=== PATIENT | female | born 1995 ===

== ENCOUNTER 2017-08-27 04:57 | Inpatient (IN) | payer BC ==
[2017-08-27] MEDS ORDERED: Ondansetron 4 MG/2 ML SDV IVPUSH PRN ×2 (08:07→12:59)
[2017-08-27] MEDS ORDERED: Sodium Chloride 0.9% 10 ML Syringe FLUSH PRN (08:07)
[2017-08-27] MEDS ORDERED: Zolpidem 5 MG Tab PO ONE (08:07)
[2017-08-27] MEDS ORDERED: Nalbuphine 20 MG/1 ML Amp IVPUSH PRN (08:07)
[2017-08-27] MEDS ORDERED: Oxytocin/Lactated Ringers 10 UNIT/1,000 ML BAG IV SCH (08:15)
--- NOTE | 2017-08-27 08:18 | PCM.LDHP ---
L&D History of Present Illness - General Date of Service: 08/27/17 Admit Problem/Dx: Patient Status Order with Admit Dx/Problem 08/27/17 08:08 Patient Status [ADT] Routine Admission Diagnosis/Problem Admission Diagnosis/Problem Normal labor Source of Information: Patient History Limitations: Reports: No Limitations - History of Present Illness Introduction:: Patient is a 21 y/o at 40 1/7 wks who presented early this am, around 0500 , with concerns for contractions. States that contractions have been occurring on and off the last few days, but have increased in frequency and intensity in the last night. Now feeling them every 3 minutes or so. otherwise uncomplicated. 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: : 1 Para: 0 LMP (Approximate): - Past Surgical History Musculoskeletal Surgical History: Reports: Other (See Below) (Wrist surgery Toe surgery) Social & Family History - Tobacco Use Smoking Status *Q: Never Smoker - Alcohol Use Alcohol Use History: No - Recreational Drug Use Recreational Drug Use: No H&P Review of Systems - Review of Systems: Review Of Systems: See Below General: Reports: No Symptoms Pulmonary: Reports: No Symptoms Cardiovascular: Reports: No Symptoms Gastrointestinal: Reports: Abdominal Pain Genitourinary: Reports: No Symptoms Musculoskeletal: Reports: No Symptoms Neurological: Reports: No Symptoms L&D Exam - Exam Exam: See Below - OB Specific Contraction Intensity: Moderate Movement: Active Heart Tones: Present Heart Tones per Min: 140 Heart Rate (FHR) Variability: Moderate (6-25 bmp) Presentation: Vertex - Dobbs Score Dobbs Score Cervix Position: Midposition Dobbs Score Consistency: Soft Dobbs Score Effacement: >80% Dobbs Score Dilation: 1-2 cm Dobbs Score Infant's Station: -2 Dobbs Score Total: 8 - Exam General: Alert, Oriented, Cooperative Lungs: Clear to Auscultation, Normal Respiratory Effort Cardiovascular: Regular Rate, Regular Rhythm GI/Abdominal Exam: Soft, Non-Tender Genitourinary: Normal external exam Extremities: Normal Inspection Skin: Warm, Dry, Intact - Problem List (1) 40 weeks gestation of SNOMED Code(s): 17182029 ICD Code: Z3A.40 - 40 WEEKS GESTATION OF Status: Acute Current Visit: Yes (2) Normal labor SNOMED Code(s): 40698279 ICD Code: O80 - ENCOUNTER FOR FULL-TERM UNCOMPLICATED DELIVERY; Z37.9 - OUTCOME OF DELIVERY, UNSPECIFIED Status: Acute Current Visit: Yes Problem List Initiated/Reviewed/Updated: Yes Orders Last 24hrs: Active Orders 24 hr Category Date Time Status Patient Status [ADT] Routine ADT 08/27/17 08:08 Ordered Activity as Tolerated [RC] PFP Care 08/27/17 08:07 Ordered Communication Order [RC] ASDIRECTED Care 08/27/17 08:07 Ordered Heart Tones [RC] ASDIRECTED Care 08/27/17 08:08 Ordered Notify Provider [RC] PFP Care 08/27/17 08:07 Ordered Notify Provider [RC] PRN Care 08/27/17 08:07 Ordered Peripheral IV Care [RC] . DIRECTED Care 08/27/17 08:08 Ordered Vital Signs [RC] PER UNIT ROUTINE Care 08/27/17 08:07 Ordered Regular Diet [DIET] Diet 08/27/17 Breakfast Ordered CBC W/O DIFF,HEMOGRAM [HEME] Routine Lab 08/27/17 08:07 Ordered TYPE AND SCREEN [BBK] Routine Lab 08/27/17 08:07 Ordered Lactated Ringers [Ringers, Lactated] 1,000 ml Med 08/27/17 08:15 Ordered IV ASDIRECTED Nalbuphine [Nubain] Med 08/27/17 08:07 Ordered 10 mg IVPUSH Q2H PRN Ondansetron [Zofran] Med 08/27/17 08:07 Ordered 4 mg IVPUSH Q4H PRN Oxytocin/Lactated Ringers [Pitocin in LR 10 Units/1,000 Med 08/27/17 08:15 Ordered ML] 10 unit in 1,000 ml IV .CONTINUOUS Sodium Chloride 0.9% [Saline Flush] Med 08/27/17 08:07 Ordered 10 ml FLUSH ASDIRECTED PRN Zolpidem [Ambien] Med 08/27/17 08:07 Once 5 mg PO ONETIME ONE Electronic Heart Tones Ext w TOCO [WOMSER] Oth 08/27/17 08:07 Ordered Routine Electronic Heart Tones Internal [WOMSER] Per Unit Oth 08/27/17 08:07 Ordered Routine Peripheral IV Insertion Adult [OM.PC] Routine Oth 08/27/17 08:07 Ordered Resuscitation Status Routine Resus Stat 08/27/17 08:07 Ordered Assessment/Plan Comment:: 21 y/o at 40 1/7 wks gestation presented with concerns of labor. Initial assessment by nursing showed patient to be 1 cm dilated, 70% effaced, and -2 station. My exam now, ~3 hrs later, shows patient to be 2 cm, 90%, and -2 station. First 45 minutes of tracing shows frequent small, sharp variable decelerations, but is otherwise reassuring. While patient has not made a lot of change do think she is in early labor. Given her living 1.5 hours from hospital, initial tracing appearance, and cervical change recommend she be admitted. She agrees. Will place a lock bulb, but would like to defer other augmentation for now. She agrees. CBC and T&S. GBS negative, no need for antibiotics. Pain management per patient preference. Anticipate . Luz Stratton MD
--- NOTE | 2017-08-27 12:23 | PCM.PNLD ---
Labor Progress Note - VS & Meds Vital Signs: Last Vital Signs Temp 37.1 C 08/27/17 10:00 Pulse 97 08/27/17 10:00 Resp 28 H 08/27/17 10:00 BP 135/90 08/27/17 10:00 Pulse Ox 96 08/27/17 10:00 Active Medications: Current Medications Lactated Ringer's (Ringers, Lactated) 1,000 mls @ 40 mls/hr IV ASDIRECTED SANDI Oxytocin/Lactated Ringer's (Pitocin In Lr 10 Units/1,000 Ml) 10 unit in 1,000 mls @ 500 mls/hr IV .CONTINUOUS SANDI Nalbuphine HCl (Nubain) 10 mg IVPUSH Q2H PRN PRN Reason: Pain (moderate 4-6) Last Admin: 08/27/17 12:07 Dose: 10 mg Ondansetron HCl (Zofran) 4 mg IVPUSH Q4H PRN PRN Reason: Nausea/Vomiting Sodium Chloride (Saline Flush) 10 ml FLUSH ASDIRECTED PRN PRN Reason: Keep Vein Open Discontinued Medications Zolpidem Tartrate (Ambien) 5 mg PO ONETIME ONE Stop: 08/27/17 08:08 Last Admin: 08/27/17 08:34 Dose: 5 mg - Uterine Contractions Uterine Monitoring Mode: External [place] Contraction Intensity: Moderate to Strong - Monitoring Monitor Mode: External Ultrasound Heart Rate (FHR) Baseline: 140 Heart Rate (FHR) Variability: Moderate (6-25 bmp) Accelerations: Present, 15x15 Decelerations: Variable Strip Review: Category II - Vaginal Exam Dilation (cm): 5 Effacement (Percent): 90 Station: -2 Cervical Position: Midposition - Labor Progress (Free Text) Labor Progress: Coelho bulb out earlier. Doing well. Good cervical change. Patient just received dose of nubain. Will return and assess patient again later this PM. Defer AROM for now given making good change on her own.
[2017-08-27] MEDS: Lactated Ringers 1,000 ML IV SCH ×3 (12:55→14:39)
[2017-08-27] MEDS ORDERED: fentaNYL 100 MCG/2 ML SDV EPIDUR PRN (12:59)
[2017-08-27] MEDS ORDERED: diphenhydrAMINE 50 MG/ML SDV IVPUSH PRN (12:59)
[2017-08-27] MEDS: Bupivacaine/fentaNYL/NS 100 ML Bag EPIDUR SCH ×2 (13:38→20:03)
--- NOTE | 2017-08-27 13:47 | PCM.PREANE ---
Preanesthetic Assessment - Procedure Proposed Procedure: JOSEPHINE - Anesthesia/Transfusion/Family Hx Anesthesia History: Prior Anesthesia Without Reaction Family History of Anesthesia Reaction: No Transfusion History: No Prior Transfusion(s) - Review of Systems General: No Symptoms Pulmonary: No Symptoms Cardiovascular: No Symptoms Gastrointestinal: Other (GERD) Neurological: No Symptoms Other: Reports: None - Physical Assessment NPO Status Date: 08/27/17 NPO Status Time: 11:00 O2 Sat by Pulse Oximetry: 96 Respiratory Rate: 28 Vital Signs: Last Vital Signs Temp 37.1 C 08/27/17 10:00 Pulse 97 08/27/17 10:00 Resp 28 H 08/27/17 10:00 BP 135/90 08/27/17 10:00 Pulse Ox 96 08/27/17 10:00 Height: 1.7 m Weight: 109.679 kg ASA Class: 2 Mental Status: Alert & Oriented x3 Airway Class: Mallampati = 2 Dentition: Reports: Normal Dentition Thyro-Mental Finger Breadths: 3 Mouth Opening Finger Breadths: 3 ROM/Head Extension: Full Lungs: Clear to Auscultation, Normal Respiratory Effort Cardiovascular: Regular Rate, Regular Rhythm - Lab Values: Laboratory Last Values WBC 16.35 K/mm3 (3.98-10.04) H 08/27/17 08:24 RBC 4.36 M/mm3 (3.98-5.22) 08/27/17 08:24 Hgb 12.6 gm/L (11.2-15.7) 08/27/17 08:24 Hct 39.0 % (34.1-44.9) 08/27/17 08:24 MCV 89.4 fl (79.4-94.8) 08/27/17 08:24 MCH 28.9 pg (25.6-32.2) 08/27/17 08:24 MCHC 32.3 g/dl (32.2-35.5) 08/27/17 08:24 RDW Std Deviation 44.9 fL (36.4-46.3) 08/27/17 08:24 Plt Count 265 K/mm3 (182-369) 08/27/17 08:24 MPV 10.8 fl (9.4-12.3) 08/27/17 08:24 Blood Type A POSITIVE 08/27/17 08:24 Gel Antibody Screen Negative 08/27/17 08:24 - Allergies Allergies/Adverse Reactions: Allergies Allergy/AdvReac Type Severity Reaction Status Date / Time No Known Allergies Allergy Verified 08/27/17 08:48 - Blood Blood Available: No Product(s) Available: None - Anesthesia Plan Pre-Op Medication Ordered: None - Acknowledgements Anesthesia Type Planned: Epidural Pt an Appropriate Candidate for the Planned Anesthesia: Yes Alternatives and Risks of Anesthesia Discussed w Pt/Guardian: Yes Pt/Guardian Understands and Agrees with Anesthesia Plan: Yes PreAnesthesia Questionnaire Gastrointestinal History: Reports: Other (See Below) Other Gastrointestinal History: Heart burn with 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 History: Reports: Musculoskeletal History: Reports: None - Past Surgical History GI Surgical History: Reports: None Musculoskeletal Surgical History: Reports: Other (See Below) Other Musculoskeletal Surgeries/Procedures:: Right wrist open reduction, internal fixation-2012, Right toe-muscle repair-2004 - SUBSTANCE USE Smoking Status *Q: Never Smoker Tobacco Use Within Last Twelve Months: No Second Hand Smoke Exposure: No Recreational Drug Use History: No - HOME MEDS Home Medications: Home Meds Vit W-Ca,Fe,FA(<1 mg) [ Vitamins] 1 each PO DAILY 08/27/17 [ History] - CURRENT (IN HOUSE) MEDS Current Meds: Current Medications Diphenhydramine HCl (Benadryl) 25 mg IVPUSH Q6H PRN PRN Reason: Pruritis Fentanyl (Sublimaze) 100 mcg EPIDUR Q3H PRN PRN Reason: Pain Last Admin: 08/27/17 13:38 Dose: 100 mcg Fentanyl/Bupivacaine HCl (Fentanyl/Bupivacaine/Ns 2 Mcg-0.125% 100 Ml) 100 ml EPIDUR ASDIRECTED SANDI Last Admin: 08/27/17 13:38 Dose: 100 ml Lactated Ringer's (Ringers, Lactated) 1,000 mls @ 40 mls/hr IV ASDIRECTED SNADI Last Admin: 08/27/17 13:39 Dose: 999 mls/hr Oxytocin/Lactated Ringer's (Pitocin In Lr 10 Units/1,000 Ml) 10 unit in 1,000 mls @ 500 mls/hr IV .CONTINUOUS SANDI Nalbuphine HCl (Nubain) 10 mg IVPUSH Q2H PRN PRN Reason: Pain (moderate 4-6) Last Admin: 08/27/17 12:07 Dose: 10 mg Ondansetron HCl (Zofran) 4 mg IVPUSH Q4H PRN PRN Reason: Nausea/Vomiting Ondansetron HCl (Zofran) 4 mg IVPUSH ONETIME PRN PRN Reason: Nausea/Vomiting Sodium Chloride (Saline Flush) 10 ml FLUSH ASDIRECTED PRN PRN Reason: Keep Vein Open Discontinued Medications Zolpidem Tartrate (Ambien) 5 mg PO ONETIME ONE Stop: 08/27/17 08:08 Last Admin: 08/27/17 08:34 Dose: 5 mg
--- NOTE | 2017-08-27 16:11 | PCM.PNLD ---
Labor Progress Note - VS & Meds Vital Signs: Last Vital Signs Temp 37.1 C 08/27/17 10:00 Pulse 97 08/27/17 10:00 Resp 28 H 08/27/17 13:47 BP 135/90 08/27/17 10:00 Pulse Ox 96 08/27/17 13:47 Active Medications: Current Medications Diphenhydramine HCl (Benadryl) 25 mg IVPUSH Q6H PRN PRN Reason: Pruritis Fentanyl (Sublimaze) 100 mcg EPIDUR Q3H PRN PRN Reason: Pain Last Admin: 08/27/17 13:38 Dose: 100 mcg Fentanyl/Bupivacaine HCl (Fentanyl/Bupivacaine/Ns 2 Mcg-0.125% 100 Ml) 100 ml EPIDUR ASDIRECTED SANDI Last Admin: 08/27/17 13:38 Dose: 100 ml Lactated Ringer's (Ringers, Lactated) 1,000 mls @ 40 mls/hr IV ASDIRECTED SANDI Last Infusion: 08/27/17 14:42 Dose: 125 mls/hr Oxytocin/Lactated Ringer's (Pitocin In Lr 10 Units/1,000 Ml) 10 unit in 1,000 mls @ 500 mls/hr IV .CONTINUOUS SANDI Nalbuphine HCl (Nubain) 10 mg IVPUSH Q2H PRN PRN Reason: Pain (moderate 4-6) Last Admin: 08/27/17 12:07 Dose: 10 mg Ondansetron HCl (Zofran) 4 mg IVPUSH Q4H PRN PRN Reason: Nausea/Vomiting Ondansetron HCl (Zofran) 4 mg IVPUSH ONETIME PRN PRN Reason: Nausea/Vomiting Sodium Chloride (Saline Flush) 10 ml FLUSH ASDIRECTED PRN PRN Reason: Keep Vein Open Discontinued Medications Zolpidem Tartrate (Ambien) 5 mg PO ONETIME ONE Stop: 08/27/17 08:08 Last Admin: 08/27/17 08:34 Dose: 5 mg - Uterine Contractions Uterine Monitoring Mode: External [place] Contraction Intensity: Moderate to Strong - Monitoring Monitor Mode: External Ultrasound Heart Rate (FHR) Baseline: 145 Heart Rate (FHR) Variability: Moderate (6-25 bmp) Accelerations: Present, 15x15 Decelerations: Variable (Multiple small, narrow variables noted ) Strip Review: Category II - Vaginal Exam Dilation (cm): 6-7 Effacement (Percent): 90 Station: -2 Cervical Position: Midposition - Labor Progress (Free Text) Labor Progress: Patient doing well. Comfortable with epidural. AROM performed with release of small amount of blood tinged fluid. Continue present management otherwise.
--- NOTE | 2017-08-27 18:07 | PCM.PNLD ---
Labor Progress Note - VS & Meds Vital Signs: Last Vital Signs Temp 37.1 C 08/27/17 10:00 Pulse 97 08/27/17 10:00 Resp 28 H 08/27/17 13:47 BP 135/90 08/27/17 10:00 Pulse Ox 96 08/27/17 13:47 Active Medications: Current Medications Diphenhydramine HCl (Benadryl) 25 mg IVPUSH Q6H PRN PRN Reason: Pruritis Fentanyl (Sublimaze) 100 mcg EPIDUR Q3H PRN PRN Reason: Pain Last Admin: 08/27/17 13:38 Dose: 100 mcg Fentanyl/Bupivacaine HCl (Fentanyl/Bupivacaine/Ns 2 Mcg-0.125% 100 Ml) 100 ml EPIDUR ASDIRECTED SANDI Last Admin: 08/27/17 13:38 Dose: 100 ml Lactated Ringer's (Ringers, Lactated) 1,000 mls @ 40 mls/hr IV ASDIRECTED SANDI Last Infusion: 08/27/17 14:42 Dose: 125 mls/hr Oxytocin/Lactated Ringer's (Pitocin In Lr 10 Units/1,000 Ml) 10 unit in 1,000 mls @ 500 mls/hr IV .CONTINUOUS SANDI Nalbuphine HCl (Nubain) 10 mg IVPUSH Q2H PRN PRN Reason: Pain (moderate 4-6) Last Admin: 08/27/17 12:07 Dose: 10 mg Ondansetron HCl (Zofran) 4 mg IVPUSH Q4H PRN PRN Reason: Nausea/Vomiting Ondansetron HCl (Zofran) 4 mg IVPUSH ONETIME PRN PRN Reason: Nausea/Vomiting Sodium Chloride (Saline Flush) 10 ml FLUSH ASDIRECTED PRN PRN Reason: Keep Vein Open Discontinued Medications Zolpidem Tartrate (Ambien) 5 mg PO ONETIME ONE Stop: 08/27/17 08:08 Last Admin: 08/27/17 08:34 Dose: 5 mg - Uterine Contractions Uterine Monitoring Mode: External [place] Contraction Intensity: Moderate to Strong - Monitoring Monitor Mode: External Ultrasound Heart Rate (FHR) Baseline: 145 Heart Rate (FHR) Variability: Moderate (6-25 bmp) Accelerations: Present, 15x15 Decelerations: Early, Variable Strip Review: Category II - Vaginal Exam Dilation (cm): 8-9 Effacement (Percent): 90 Station: -1 Cervical Position: Midposition - Labor Progress (Free Text) Labor Progress: Called by nursing, exam for them just a rim/lip on one side. Arrived and patient more like 8-9 cm dilated, however, good change from 2 hours ago when was 6-7. Continue present management. Luz Stratton MD
--- NOTE | 2017-08-27 20:44 | PCM.DEL ---
L & D Note - General Info Date of Service: 08/27/17 - Delivery Note Labor: Spontaneous Cervical Ripening Method: Balloon Device Delivery Outcome: Livebirth Infant Delivery Method: Spontaneous Vaginal Delivery-Single Delivery Mode: Spontaneous Presentation: Left Occiput Anterior (REILLY) Nuchal Cord: Present (tight, not able to be reduced) Anesthesia Type: Epidural Amniotic Fluid Description: Meconium Stained Episiotomy Type: None Laceration: 2nd Degree, Perineal Suture type: Vicryl Suture size: 2-0 Placenta: Intact, Spontaneous Cord: 3 Vessels Estimated Blood Loss: 300 Resuscitation Needed: Yes : Bulb Syringe, Stimulated, Warmed, [place] Used, Warmer Used Score 1 min: 8 Score 5 min: 9 Delivery Comments (Free Text/Narrative):: Patient found to be complete and began pushing. With maternal pushing effort head delivered from an PAUL presentation. Nuchal cord present, but tight and so delivered through. With gentle downward traction the shoulders and body delivered. Infant placed on maternal abdomen where cord clamped and cut. Baby then taken to warmer for assessment. Cord blood obtained. Placenta allowed time to separate and spontaneously expelled. Inspection of the perineum showed a 2nd degree laceration which was repaired with a 2-0 vicryl in the typical fashion. - Patient Data Vitals - Most Recent: Last Vital Signs Temp 37.1 C 08/27/17 10:00 Pulse 97 08/27/17 10:00 Resp 28 H 08/27/17 13:47 BP 135/90 08/27/17 10:00 Pulse Ox 96 08/27/17 13:47 Weight - Most Recent: 109.679 kg Lab Results Last 24 Hours: Laboratory Results - last 24 hr 08/27/17 08/27/17 Range/Units 08:24 08:24 WBC 16.35 H (3.98-10.04) K/mm3 RBC 4.36 (3.98-5.22) M/mm3 Hgb 12.6 (11.2-15.7) gm/L Hct 39.0 (34.1-44.9) % MCV 89.4 (79.4-94.8) fl MCH 28.9 (25.6-32.2) pg MCHC 32.3 (32.2-35.5) g/dl RDW Std Deviation 44.9 (36.4-46.3) fL Plt Count 265 (182-369) K/mm3 MPV 10.8 (9.4-12.3) fl Blood Type A POSITIVE Gel Antibody Screen Negative Med Orders - Current: Current Medications Diphenhydramine HCl (Benadryl) 25 mg IVPUSH Q6H PRN PRN Reason: Pruritis Fentanyl (Sublimaze) 100 mcg EPIDUR Q3H PRN PRN Reason: Pain Last Admin: 08/27/17 13:38 Dose: 100 mcg Fentanyl/Bupivacaine HCl (Fentanyl/Bupivacaine/Ns 2 Mcg-0.125% 100 Ml) 100 ml EPIDUR ASDIRECTED SANDI Last Admin: 08/27/17 20:03 Dose: 100 ml Lactated Ringer's (Ringers, Lactated) 1,000 mls @ 40 mls/hr IV ASDIRECTED SANDI Last Infusion: 08/27/17 14:42 Dose: 125 mls/hr Oxytocin/Lactated Ringer's (Pitocin In Lr 10 Units/1,000 Ml) 10 unit in 1,000 mls @ 500 mls/hr IV .CONTINUOUS SANDI Nalbuphine HCl (Nubain) 10 mg IVPUSH Q2H PRN PRN Reason: Pain (moderate 4-6) Last Admin: 08/27/17 12:07 Dose: 10 mg Ondansetron HCl (Zofran) 4 mg IVPUSH Q4H PRN PRN Reason: Nausea/Vomiting Ondansetron HCl (Zofran) 4 mg IVPUSH ONETIME PRN PRN Reason: Nausea/Vomiting Sodium Chloride (Saline Flush) 10 ml FLUSH ASDIRECTED PRN PRN Reason: Keep Vein Open Discontinued Medications Zolpidem Tartrate (Ambien) 5 mg PO ONETIME ONE Stop: 08/27/17 08:08 Last Admin: 08/27/17 08:34 Dose: 5 mg - Problem List & Annotations (1) 40 weeks gestation of SNOMED Code(s): 83823524 Code(s): Z3A.40 - 40 WEEKS GESTATION OF Status: Acute Current Visit: Yes (2) Normal labor SNOMED Code(s): 11991022 Code(s): O80 - ENCOUNTER FOR FULL-TERM UNCOMPLICATED DELIVERY; Z37.9 - OUTCOME OF DELIVERY, UNSPECIFIED Status: Acute Current Visit: Yes (3) Vaginal delivery SNOMED Code(s): 818982710 Code(s): O80 - ENCOUNTER FOR FULL-TERM UNCOMPLICATED DELIVERY Status: Acute Current Visit: Yes - Problem List Review Problem List Initiated/Reviewed/Updated: Yes - My Orders Last 24 Hours: My Active Orders 08/27/17 08:07 Activity as Tolerated [RC] PFP Communication Order [RC] ASDIRECTED Notify Provider [RC] PFP Notify Provider [RC] PRN Vital Signs [RC] PER UNIT ROUTINE Nalbuphine [Nubain] 10 mg IVPUSH Q2H PRN Ondansetron [Zofran] 4 mg IVPUSH Q4H PRN Sodium Chloride 0.9% [Saline Flush] 10 ml FLUSH ASDIRECTED PRN Electronic Heart Tones Ext w TOCO [WOMSER] Routine Electronic Heart Tones Internal [WOMSER] Per Unit Routine Peripheral IV Insertion Adult [OM.PC] Routine Resuscitation Status Routine 08/27/17 08:08 Patient Status [ADT] Routine Heart Tones [RC] ASDIRECTED Peripheral IV Care [RC] . DIRECTED 08/27/17 08:15 Lactated Ringers [Ringers, Lactated] 1,000 ml IV ASDIRECTED Oxytocin/Lactated Ringers [Pitocin in LR 10 Units/1,000 ML] 10 unit in 1,000 ml IV .CONTINUOUS 08/27/17 Breakfast Regular Diet [DIET] - Assessment Assessment:: 21 y/o G1 now P1001 PPD#0 from at 40 1/7 wks - Plan Plan:: * Routine cares * Encourage breast feeding * Discharge home in 2 days Luz Stratton MD
[2017-08-27] MEDS ORDERED: Bupivacaine 0.25% 10 ML SDV ONE (22:22)
--- NOTE | 2017-08-28 06:41 | PCM48HPAN ---
Post Anesthesia Note - EVALUATION WITHIN 48HRS OF ANESTHETIC Vital Signs in Normal Range: Yes Patient Participated in Evaluation: Yes Respiratory Function Stable: Yes Airway Patent: Yes Cardiovascular Function Stable: Yes Hydration Status Stable: Yes Pain Control Satisfactory: Yes Nausea and Vomiting Control Satisfactory: Yes Mental Status Recovered: Yes - COMMENTS/OBSERVATIONS Free Text/Narrative:: Patient denies any headaches, residual numbness or tingling to LE, and has a very mild case of back soreness. Pt doing well resting in bed.
--- NOTE | 2017-08-28 06:42 | PCM.PNPP ---
- General Info Date of Service: 08/28/17 Functional Status: Reports: Pain Controlled, Tolerating Diet, Ambulating, Urinating - Review of Systems General: Reports: No Symptoms Pulmonary: Reports: No Symptoms Cardiovascular: Reports: No Symptoms Gastrointestinal: Reports: No Symptoms Genitourinary: Reports: No Symptoms Musculoskeletal: Reports: No Symptoms - Patient Data Vital Signs - Most Recent: Last Vital Signs Temp 36.8 C 08/28/17 04:11 Pulse 93 08/28/17 04:11 Resp 13 08/28/17 04:11 BP 102/54 L 08/28/17 04:11 Pulse Ox 95 08/28/17 04:11 Weight - Most Recent: 109.679 kg I&O - Last 24 Hours: Intake & Output 08/27/17 08/27/17 08/28/17 14:59 22:59 06:59 Intake Total 3600 Balance 3600 Lab Results - Last 24 Hours: Laboratory Results - last 24 hr 08/27/17 08/27/17 Range/Units 08:24 08:24 WBC 16.35 H (3.98-10.04) K/mm3 RBC 4.36 (3.98-5.22) M/mm3 Hgb 12.6 (11.2-15.7) gm/L Hct 39.0 (34.1-44.9) % MCV 89.4 (79.4-94.8) fl MCH 28.9 (25.6-32.2) pg MCHC 32.3 (32.2-35.5) g/dl RDW Std Deviation 44.9 (36.4-46.3) fL Plt Count 265 (182-369) K/mm3 MPV 10.8 (9.4-12.3) fl Blood Type A POSITIVE Gel Antibody Screen Negative Med Orders - Current: Current Medications Diphenhydramine HCl (Benadryl) 25 mg IVPUSH Q6H PRN PRN Reason: Pruritis Fentanyl (Sublimaze) 100 mcg EPIDUR Q3H PRN PRN Reason: Pain Last Admin: 08/27/17 13:38 Dose: 100 mcg Fentanyl/Bupivacaine HCl (Fentanyl/Bupivacaine/Ns 2 Mcg-0.125% 100 Ml) 100 ml EPIDUR ASDIRECTED SANDI Last Admin: 08/27/17 20:03 Dose: 100 ml Lactated Ringer's (Ringers, Lactated) 1,000 mls @ 40 mls/hr IV ASDIRECTED SANDI Last Infusion: 08/27/17 14:42 Dose: 125 mls/hr Oxytocin/Lactated Ringer's (Pitocin In Lr 10 Units/1,000 Ml) 10 unit in 1,000 mls @ 500 mls/hr IV .CONTINUOUS SANDI Last Admin: 08/27/17 20:25 Dose: 500 mls/hr Nalbuphine HCl (Nubain) 10 mg IVPUSH Q2H PRN PRN Reason: Pain (moderate 4-6) Last Admin: 08/27/17 12:07 Dose: 10 mg Ondansetron HCl (Zofran) 4 mg IVPUSH Q4H PRN PRN Reason: Nausea/Vomiting Ondansetron HCl (Zofran) 4 mg IVPUSH ONETIME PRN PRN Reason: Nausea/Vomiting Sodium Chloride (Saline Flush) 10 ml FLUSH ASDIRECTED PRN PRN Reason: Keep Vein Open Discontinued Medications Zolpidem Tartrate (Ambien) 5 mg PO ONETIME ONE Stop: 08/27/17 08:08 Last Admin: 08/27/17 08:34 Dose: 5 mg - Infant Interaction Infant Disposition, : [place] in Room with Family Infant Interaction: Holding Infant Feeding: Breastfed ; Nursed Well Support Person: - Recovery Exam Fundal Tone: Firm Fundal Level: 1 Fingerbreadths Below Umbilicus Fundal Placement: Midline Lochia Amount: Scant Lochia Color: Rubra/Red Perineum Description: Edematous Episiotomy/Laceration: Approximated Bladder Status: Voiding Urinary Elimination: Voided - Exam General: Alert, Oriented, Cooperative GI/Abdominal Exam: Soft, Non-Tender Skin: Warm, Dry, Intact - Problem List & Annotations (1) 40 weeks gestation of SNOMED Code(s): 75916316 Code(s): Z3A.40 - 40 WEEKS GESTATION OF Status: Acute Current Visit: Yes (2) Normal labor SNOMED Code(s): 75633031 Code(s): O80 - ENCOUNTER FOR FULL-TERM UNCOMPLICATED DELIVERY; Z37.9 - OUTCOME OF DELIVERY, UNSPECIFIED Status: Acute Current Visit: Yes (3) Vaginal delivery SNOMED Code(s): 505037626 Code(s): O80 - ENCOUNTER FOR FULL-TERM UNCOMPLICATED DELIVERY Status: Acute Current Visit: Yes - Problem List Review Problem List Initiated/Reviewed/Updated: Yes - My Orders Last 24 Hours: My Active Orders 08/27/17 08:07 Activity as Tolerated [RC] PFP Vital Signs [RC] ,, Nalbuphine [Nubain] 10 mg IVPUSH Q2H PRN Ondansetron [Zofran] 4 mg IVPUSH Q4H PRN Sodium Chloride 0.9% [Saline Flush] 10 ml FLUSH ASDIRECTED PRN Electronic Heart Tones Ext w TOCO [WOMSER] Routine Electronic Heart Tones Internal [WOMSER] Per Unit Routine Peripheral IV Insertion Adult [OM.PC] Routine Resuscitation Status Routine 08/27/17 08:08 Patient Status [ADT] Routine 08/27/17 08:15 Lactated Ringers [Ringers, Lactated] 1,000 ml IV ASDIRECTED Oxytocin/Lactated Ringers [Pitocin in LR 10 Units/1,000 ML] 10 unit in 1,000 ml IV .CONTINUOUS 08/27/17 Breakfast Regular Diet [DIET] 08/28/17 03:15 [place] Catheter Insertion [Insert Urinary Catheter] [OM.PC] Q24H 08/28/17 06:21 Patient Status Manage Transfer [TRANSFER] Routine - Assessment Assessment:: 21 y/o G1 now P1001 PPD#1 from at 40 1/7 wks - Plan Plan:: * Routine cares * Encourage breast feeding * Discharge home tomorrow Luz Stratton MD
[2017-08-28] MEDS ORDERED: Benzocaine/Menthol 20%-0.5% Spray 56 GM Canister TOP PRN (06:52)
[2017-08-28] MEDS ORDERED: Docusate Sodium 100 MG Cap PO PRN (06:52)
[2017-08-28] MEDS ORDERED: Witch Hazel Medicated Pads 100/Jar TOP PRN (06:52)
[2017-08-28] MEDS ORDERED: Ibuprofen 600 MG Tab PO PRN (06:52)
[2017-08-28] MEDS ORDERED: Acetaminophen 325 MG Tab PO PRN (06:52)
[2017-08-28] MEDS ORDERED: Lanolin 100% Cream 7 GM Tube TOP PRN (06:52)
--- NOTE | 2017-08-29 05:10 | PCM.PNPP ---
- General Info Date of Service: 08/29/17 Functional Status: Reports: Pain Controlled, Tolerating Diet, Ambulating, Urinating - Review of Systems General: Reports: No Symptoms Pulmonary: Reports: No Symptoms Cardiovascular: Reports: No Symptoms Gastrointestinal: Reports: No Symptoms Genitourinary: Reports: No Symptoms Musculoskeletal: Reports: No Symptoms - Patient Data Vital Signs - Most Recent: Last Vital Signs Temp 36.6 C 08/29/17 04:58 Pulse 73 08/29/17 04:58 Resp 16 08/29/17 04:58 BP 111/76 08/29/17 04:58 Pulse Ox 100 08/29/17 04:58 Weight - Most Recent: 109.679 kg Med Orders - Current: Current Medications Acetaminophen (Tylenol) 650 mg PO Q4H PRN PRN Reason: mild pain or fever Benzocaine/Menthol (Dermoplast Pain Relief [place]) 0 gm TOP ASDIRECTED PRN PRN Reason: Perineal Comfort Measure Docusate Sodium (Colace) 100 mg PO BID PRN PRN Reason: Constipation Emollient Ointment (Lansinoh Hpa) 0 gm TOP ASDIRECTED PRN PRN Reason: Sore Nipples Ibuprofen (Motrin) 600 mg PO Q6H PRN PRN Reason: Mild pain or fever Last Admin: 08/28/17 22:39 Dose: 600 mg Witch Ricarda (Tucks) 1 pad TOP ASDIRECTED PRN PRN Reason: Hemorrhoid pain Discontinued Medications Bupivacaine HCl (Sensorcaine-Mpf 0.25%) 10 ml .ROUTE .STK-MED ONE Stop: 08/27/17 22:23 Diphenhydramine HCl (Benadryl) 25 mg IVPUSH Q6H PRN PRN Reason: Pruritis Fentanyl (Sublimaze) 100 mcg EPIDUR Q3H PRN PRN Reason: Pain Last Admin: 08/27/17 13:38 Dose: 100 mcg Fentanyl/Bupivacaine HCl (Fentanyl/Bupivacaine/Ns 2 Mcg-0.125% 100 Ml) 100 ml EPIDUR ASDIRECTED [facility]I Last Admin: 08/27/17 20:03 Dose: 100 ml Lactated Ringer's (Ringers, Lactated) 1,000 mls @ 40 mls/hr IV ASDIRECTED [facility]ANDI Last Infusion: 08/27/17 14:42 Dose: 125 mls/hr Oxytocin/Lactated Ringer's (Pitocin In Lr 10 Units/1,000 Ml) 10 unit in 1,000 mls @ 500 mls/hr IV .CONTINUOUS SANDI Last Admin: 08/27/17 20:25 Dose: 500 mls/hr Nalbuphine HCl (Nubain) 10 mg IVPUSH Q2H PRN PRN Reason: Pain (moderate 4-6) Last Admin: 08/27/17 12:07 Dose: 10 mg Ondansetron HCl (Zofran) 4 mg IVPUSH Q4H PRN PRN Reason: Nausea/Vomiting Ondansetron HCl (Zofran) 4 mg IVPUSH ONETIME PRN PRN Reason: Nausea/Vomiting Sodium Chloride (Saline Flush) 10 ml FLUSH ASDIRECTED PRN PRN Reason: Keep Vein Open Zolpidem Tartrate (Ambien) 5 mg PO ONETIME ONE Stop: 08/27/17 08:08 Last Admin: 08/27/17 08:34 Dose: 5 mg - Interaction Disposition, : [place] in Room with Family Infant Interaction: Holding Feeding: Breastfed Infant; Nursed Well Support Person: - Recovery Exam Fundal Tone: Firm Fundal Level: At Umbilicus Fundal Placement: Midline Lochia Amount: Small Lochia Color: Rubra/Red Perineum Description: Intact, Minimal Bruising/Swelling Episiotomy/Laceration: Approximated Bladder Status: Voiding Urinary Elimination: Voided - Exam General: Alert, Oriented, Cooperative GI/Abdominal Exam: Soft, Non-Tender Extremities: Normal Inspection Skin: Warm, Dry, Intact - Problem List & Annotations (1) 40 weeks gestation of SNOMED Code(s): 26373634 Code(s): Z3A.40 - 40 WEEKS GESTATION OF Status: Acute Current Visit: Yes (2) Normal labor SNOMED Code(s): 86095448 Code(s): O80 - ENCOUNTER FOR FULL-TERM UNCOMPLICATED DELIVERY; Z37.9 - OUTCOME OF DELIVERY, UNSPECIFIED Status: Acute Current Visit: Yes (3) Vaginal delivery SNOMED Code(s): 160191085 Code(s): O80 - ENCOUNTER FOR FULL-TERM UNCOMPLICATED DELIVERY Status: Acute Current Visit: Yes - Problem List Review Problem List Initiated/Reviewed/Updated: Yes - My Orders Last 24 Hours: My Active Orders 08/28/17 06:52 Activity as Tolerated [RC] PER UNIT ROUTINE Acetaminophen [Tylenol] 650 mg PO Q4H PRN Benzocaine/Menthol [Dermoplast Pain Relief [place]] See Dose Instructions TOP ASDIRECTED PRN Docusate Sodium [Colace] 100 mg PO BID PRN Ibuprofen [Motrin] 600 mg PO Q6H PRN Lanolin [Lansinoh HPA] See Dose Instructions TOP ASDIRECTED PRN Witch Ricarda [Tucks] 1 pad TOP ASDIRECTED PRN Assess Lochia [WOMSER] Per Unit Routine Assess Uterine Involution [WOMSER] Per Unit Routine Breast Pump [WOMSER] Per Unit Routine Heat Therapy [OM.PC] PRN Ice Therapy [OM.PC] Per Unit Routine Perineal Care [OM.PC] Per Unit Routine Peripheral IV Discontinue [OM.PC] Routine Sitz Bath [OM.PC] Per Unit Routine 08/28/17 Breakfast Regular Diet [DIET] 08/29/17 06:52 Heat Therapy [OM.PC] PRN - Assessment Assessment:: 21 y/o G1 now P1001 PPD#2 from at 40 1/7 wks - Plan Plan:: * Routine cares * Encourage breast feeding * Discharge home today Luz Stratton MD
--- NOTE | 2017-08-29 05:11 | PCM.DCSUM1 ---
Discharge Summary - Discharge Data Discharge Date: 08/29/17 Discharge Disposition: Home, Self-Care 01 Condition: Good - Discharge Diagnosis/Problem(s) (1) 40 weeks gestation of SNOMED Code(s): 89593624 ICD Code: Z3A.40 - 40 WEEKS GESTATION OF Status: Acute Current Visit: Yes (2) Normal labor SNOMED Code(s): 53177440 ICD Code: O80 - ENCOUNTER FOR FULL-TERM UNCOMPLICATED DELIVERY; Z37.9 - OUTCOME OF DELIVERY, UNSPECIFIED Status: Acute Current Visit: Yes (3) Vaginal delivery SNOMED Code(s): 687016603 ICD Code: O80 - ENCOUNTER FOR FULL-TERM UNCOMPLICATED DELIVERY Status: Acute Current Visit: Yes - Patient Summary/Data Complications: None Consults: None Recommended Follow-up Testing/Procedures: Follow up with Dr. Easley in 2 weeks Hospital Course: 21 y/o admitted at40 1/7 wks in labor. She did have lock bulb placed at start of labor. Progressed well to complete dilation. She then underwent an uncomplicated . See delivery note. she did well and was discharged home on PPD#2 - Patient Instructions Diet: Regular Diet as Tolerated Activity: As Tolerated Activity, Other: Pelvic Rest for 6 weeks Driving: May Drive Today Showering/Bathing: May Shower Showering/Bathing, Other: May Bathe Notify Provider of: Fever, Increased Pain, Swelling and Redness, Drainage, Nausea and/or Vomiting - Discharge Plan Home Medications: Home Meds Vit W-Ca,Fe,FA(<1 mg) [ Vitamins] 1 each PO DAILY 08/27/17 [ History] Docusate Sodium [Colace] 100 mg PO BID PRN cap 08/28/17 [Rx] Ibuprofen [IJD: Ibuprofen] 600 mg PO Q6H PRN tablet 08/28/17 [Rx] Referrals: Chele Easley MD [Primary Care Provider] - (2 weeks for check ) - Discharge Summary/Plan Comment DC Time >30 min.: No - Patient Data Vitals - Most Recent: Last Vital Signs Temp 36.6 C 08/29/17 04:58 Pulse 73 08/29/17 04:58 Resp 16 08/29/17 04:58 BP 111/76 08/29/17 04:58 Pulse Ox 100 08/29/17 04:58 Weight - Most Recent: 109.679 kg Med Orders - Current: Current Medications Acetaminophen (Tylenol) 650 mg PO Q4H PRN PRN Reason: mild pain or fever Benzocaine/Menthol (Dermoplast Pain Relief [place]) 0 gm TOP ASDIRECTED PRN PRN Reason: Perineal Comfort Measure Docusate Sodium (Colace) 100 mg PO BID PRN PRN Reason: Constipation Emollient Ointment (Lansinoh Hpa) 0 gm TOP ASDIRECTED PRN PRN Reason: Sore Nipples Ibuprofen (Motrin) 600 mg PO Q6H PRN PRN Reason: Mild pain or fever Last Admin: 08/28/17 22:39 Dose: 600 mg Witch Ricarda (Tucks) 1 pad TOP ASDIRECTED PRN PRN Reason: Hemorrhoid pain Discontinued Medications Bupivacaine HCl (Sensorcaine-Mpf 0.25%) 10 ml .ROUTE .STK-MED ONE Stop: 08/27/17 22:23 Diphenhydramine HCl (Benadryl) 25 mg IVPUSH Q6H PRN PRN Reason: Pruritis Fentanyl (Sublimaze) 100 mcg EPIDUR Q3H PRN PRN Reason: Pain Last Admin: 08/27/17 13:38 Dose: 100 mcg Fentanyl/Bupivacaine HCl (Fentanyl/Bupivacaine/Ns 2 Mcg-0.125% 100 Ml) 100 ml EPIDUR ASDIRECTED [facility] Last Admin: 08/27/17 20:03 Dose: 100 ml Lactated Ringer's (Ringers, Lactated) 1,000 mls @ 40 mls/hr IV ASDIRECTED [facility] Last Infusion: 08/27/17 14:42 Dose: 125 mls/hr Oxytocin/Lactated Ringer's (Pitocin In Lr 10 Units/1,000 Ml) 10 unit in 1,000 mls @ 500 mls/hr IV .CONTINUOUS SANDI Last Admin: 08/27/17 20:25 Dose: 500 mls/hr Nalbuphine HCl (Nubain) 10 mg IVPUSH Q2H PRN PRN Reason: Pain (moderate 4-6) Last Admin: 08/27/17 12:07 Dose: 10 mg Ondansetron HCl (Zofran) 4 mg IVPUSH Q4H PRN PRN Reason: Nausea/Vomiting Ondansetron HCl (Zofran) 4 mg IVPUSH ONETIME PRN PRN Reason: Nausea/Vomiting Sodium Chloride (Saline Flush) 10 ml FLUSH ASDIRECTED PRN PRN Reason: Keep Vein Open Zolpidem Tartrate (Ambien) 5 mg PO ONETIME ONE Stop: 08/27/17 08:08 Last Admin: 08/27/17 08:34 Dose: 5 mg *Q Meaningful Use (DIS) - VTE *Q VTE Criteria *Q: - Stroke *Q Stroke Criteria *Q: - AMI *Q AMI Criteria *Q:
[2017-08-29] MEDS ORDERED: Measles, Mumps & Rubella Vaccine 0.5 ML SDV SUBCUT ONE (09:44)
== END 2017-08-29 10:24 | disposition home or self-care (01) | DRG 560 ==
LOC: JD.OBCHECK 04:57 → JD.OB 04:57 → JD.OBCHECK 07:59 → JD.OB 08:00 → UNDOADMOB 08:00 → JD.OB 08:08 → OBSVTOIN 20:22 → JD.OB 20:22
PROVIDERS: ADMIT Obstetrics & Gynecology; ATTEND Obstetrics & Gynecology
PROC: 10E0XZZ Delivery of Products of Conception, External Approach (ICD-10-PCS; principal; 2017-08-27)
PROC: 0KQM0ZZ Repair Perineum Muscle, Open Approach (ICD-10-PCS; 2017-08-27)
PROC: 10907ZC Drainage of Amniotic Fluid, Therapeutic from Products of Conception, Via Natural or Artificial Opening (ICD-10-PCS; 2017-08-27)
PROC: 00HU33Z Insertion of Infusion Device into Spinal Canal, Percutaneous Approach (ICD-10-PCS; 2017-08-27)
PROC: 3E0R3BZ Introduction of Anesthetic Agent into Spinal Canal, Percutaneous Approach (ICD-10-PCS; 2017-08-27)
DX: O77.0 Labor and delivery complicated by meconium in amniotic fluid (principal); O69.81X0 Labor and delivery complicated by cord around neck, without compression, not applicable or unspecified; O70.1 Second degree perineal laceration during delivery; Z3A.40 40 weeks gestation of pregnancy; Z37.0 Single live birth
CPT/HCPCS: 36415; 51702; 59300; 59409; 85027; 86850; 86900; 86901; 90471; 90707; A9270-GY; J2300; J2590; J3010; J7120